=== PATIENT | female | born 1955 | race Caucasian/White ===

== ENCOUNTER 2019-08-14 08:13 | Outpatient (CLI) | payer MEDICARE ==
--- NOTE | 2019-08-17 08:02 | BD ---
DEXA bone density examination HISTORY: 64 year-old postmenopausal female for screening COMPARISON: None FINDINGS: L1--bone mineral density 0.905 g/sq cm; T score -0.8 L2--bone mineral density 0.949 g/sq cm; T score -0.7 L3--bone mineral density 0.9 g/sq cm; T score -0.9 L4--bone mineral density 0.992 g/sq cm; T score -0.6 Total L1-L4--bone mineral density 0.962 g/sq cm; T score -0.8 Left femoral neck--bone mineral density0.751 g/sq cm; T score -0.9 Total proximal left femur--bone mineral density 0.912 g/sq cm ; T score -0.2 IMPRESSION: 1. Normal bone mineralization lumbar spine and left femoral neck. 2. The 10 year major osteoporotic risk fracture is 9.8% with 10 year hip fracture risk of 0.7%.
== END 2019-08-14 08:14 | disposition home or self-care (01) ==
LOC: BICMAMMO 08:13
PROVIDERS: ATTEND Internal Medicine Rheumatology
DX: M81.0 Age-related osteoporosis without current pathological fracture (principal)
CPT/HCPCS: 77080

== ENCOUNTER 2021-11-22 09:10 | Outpatient (CLI) | payer MEDICARE, OTHER | END 2021-11-22 09:11 | disposition home or self-care (01) | LOC: BICMAMMO 09:10 | PROVIDERS: ATTEND Family Medicine | DX: Z12.31 Encounter for screening mammogram for malignant neoplasm of breast (principal); Z91.89 Other specified personal risk factors, not elsewhere classified | CPT/HCPCS: 77063; 77067 ==

== ENCOUNTER 2022-06-12 07:42 | Outpatient (CLI) | payer MEDICARE, OTHER | END 2022-06-12 07:43 | disposition home or self-care (01) | LOC: SCSMRI 07:42 | PROVIDERS: ATTEND Family Medicine | DX: M47.22 Other spondylosis with radiculopathy, cervical region (principal); M50.122 Cervical disc disorder at C5-C6 level with radiculopathy; M50.123 Cervical disc disorder at C6-C7 level with radiculopathy; M89.38 Hypertrophy of bone, other site | CPT/HCPCS: 72052 ==

== ENCOUNTER 2022-07-05 13:02 | Outpatient (CLI) | payer MEDICARE, OTHER | END 2022-07-05 13:03 | disposition home or self-care (01) | LOC: SCSMRI 13:02 | PROVIDERS: ATTEND Family Medicine | DX: M47.22 Other spondylosis with radiculopathy, cervical region (principal); M50.11 Cervical disc disorder with radiculopathy, high cervical region; M25.78 Osteophyte, vertebrae; M50.121 Cervical disc disorder at C4-C5 level with radiculopathy; M51.25 Other intervertebral disc displacement, thoracolumbar region; M47.815 Spondylosis without myelopathy or radiculopathy, thoracolumbar region; M48.03 Spinal stenosis, cervicothoracic region; M48.05 Spinal stenosis, thoracolumbar region | CPT/HCPCS: 72141 ==

== ENCOUNTER 2022-12-17 11:29 | Outpatient (CLI) | payer MEDICARE, OTHER | END 2022-12-17 11:30 | disposition home or self-care (01) | LOC: BICMAMMO 11:29 | PROVIDERS: ATTEND Family Medicine | DX: Z12.31 Encounter for screening mammogram for malignant neoplasm of breast (principal); Z80.3 Family history of malignant neoplasm of breast; Z91.89 Other specified personal risk factors, not elsewhere classified | CPT/HCPCS: 77063; 77067 ==